=== PATIENT | female | born 2000 | race Hispanic/Latino ===

== ENCOUNTER 2024-07-28 21:50 | Emergency (ER) | payer OTHER ==
[~2024-07-28] VITALS: Ht 154.9 cm; Wt 47.2 kg
[2024-07-28 22:03] VITALS: PULSE 120; RESP 18; TEMP 98.5
[2024-07-28] MEDS ORDERED: PREDNISONE 20 MG TAB ONE (22:25)
[2024-07-28] MEDS: DIPHENHYDRAMINE HCL 25 MG CAP PO ONE (22:32)
[2024-07-28] MEDS: PREDNISONE 20 MG TAB PO SCH (22:34)
[2024-07-28] MEDS ORDERED: PREDNISONE20 MG PO (23:40)
[2024-07-28] MEDS ORDERED: MACROBID 100 M100 MG PO (23:41)
[2024-07-28 23:53] VITALS: BP 120/74; PULSE 120; RESP 18; TEMP 98.5; O2SAT 98
== END 2024-07-28 23:53 | disposition home or self-care (01) ==
LOC: FSED 22:16
DX: R21 Rash and other nonspecific skin eruption (principal); T78.40XA Allergy, unspecified, initial encounter; N39.0 Urinary tract infection, site not specified; R30.0 Dysuria
CPT/HCPCS: 81003; 99282; J7512